=== PATIENT | male | born 1975 | race Two or more races ===

== ENCOUNTER 2025-07-29 09:21 | Emergency (ER) | payer MEDICAID, SELFPAY ==
[2025-07-29 09:54] VITALS: BP 169/123; PULSE 91; RESP 18; TEMP 36.6; O2SAT 96; BMI 29.9
--- NOTE | 2025-07-29 10:01 | PC.NURSE ---
PT NOT IN ROOM; NOR IN ED LOBBY AT THIS TIME
--- NOTE | 2025-07-29 10:12 | PD.EDRME ---
Rapid Medical Screening Exam RME Arrival date/time: 07/29/25 09:21 50-year-old male with no known medical history presents to the emergency room with a chief complaint of a nosebleed to his left nostril x 3 hours I have greeted and performed a focused initial assessment of this patient. A comprehensive ED assessment and evaluation of the patient, analysis of all test results, and completion of the medical decision making process will be conducted by additional ED providers. Chief Complaint: Epistaxis/Nasal Foreign Body Time Seen by Provider: 07/29/25 09:44 Vital signs: Vital Signs Temperature 97.8 F 07/29/25 09:54 Pulse Rate 91 07/29/25 09:54 Respiratory Rate 18 07/29/25 09:54 Blood Pressure 169/123 H 07/29/25 09:54 Pulse Oximetry (%) 96 07/29/25 09:54 Oxygen Delivery Method Room Air 07/29/25 09:54 Vital signs reviewed by provider: Yes Exam: Left nostril epistaxis x 3 hours GCS of 15 alert and oriented x 3 Clinical Impression: anterior epistaxis/posterior epistaxis
--- NOTE | 2025-07-29 10:16 | PC.NURSE ---
PT NOT IN ASSIGNED ROOM NOR IN THE LOBBY AT THIS TIME
--- NOTE | 2025-07-29 10:55 | PC.NURSE ---
PT NOT IN ASSIGNED ROOM NOR IN THE ED LOBBY AT THIS TIME
== END 2025-07-29 10:57 | disposition left against medical advice (07) ==
LOC: SERX 11:00
PROVIDERS: Emergency Provider Emergency Medicine
DX: R04.0 Epistaxis (principal); Z53.29 Procedure and treatment not carried out because of patient's decision for other reasons
CPT/HCPCS: 99281; A9270

== ENCOUNTER 2025-07-29 15:06 | Emergency (ER) | payer MEDICAID, SELFPAY ==
[2025-07-29 15:20] VITALS: BP 141/95; PULSE 86; RESP 18; TEMP 36.8; O2SAT 98; BMI 29.9
[2025-07-29] MEDS: OXYMETAZOLINE NAS SPRY 0.05% 15 ML BTL NASAL (15:48)
--- NOTE | 2025-07-29 15:54 | PD.EDRME ---
Rapid Medical Screening Exam RME Arrival date/time: 07/29/25 15:06 50-year-old male with no known medical history presents to the emergency room with a chief complaint of bleeding from his left nostril x 5 hours I have greeted and performed a focused initial assessment of this patient. A comprehensive ED assessment and evaluation of the patient, analysis of all test results, and completion of the medical decision making process will be conducted by additional ED providers. Chief Complaint: Epistaxis/Nasal Foreign Body Time Seen by Provider: 07/29/25 15:31 Vital signs: Vital Signs Temperature 98.3 F 07/29/25 15:20 Pulse Rate 86 07/29/25 15:20 Respiratory Rate 18 07/29/25 15:20 Blood Pressure 141/95 H 07/29/25 15:20 Pulse Oximetry (%) 98 07/29/25 15:20 Oxygen Delivery Method Room Air 07/29/25 15:20 Vital signs reviewed by provider: Yes Exam: Left nasal epistaxis GCS of 15 Clinical Impression: Anterior epistaxis/posterior epistaxis
--- NOTE | 2025-07-29 17:06 | EDNOTE_ITS ---
<Statement entered by Tatum Abbott MD - 07/31/25 16:17> I, Tatum Abbott MD, have reviewed the history, exam, and assessment of the patient. I have evaluated the patient independently and agree with the plan of care documented by [ ]. All diagnostic studies were reviewed and discussed. I confirm the diagnosis as documented by the Resident. I was present during the Medical Decision Making for this patient. The patient's plan of care was created between myself and the Resident and consistent with our discussion of the patient's case. ED Epistaxis E/[facility] General Chief complaint: Epistaxis/Nasal Foreign Body Stated complaint: NOSE BLEED THAT WILL NOT STOP Time Seen by Provider: 07/29/25 15:31 Arrival date/time: 07/29/25 15:06 E / [facility] Narrative: 07/29/25 15:06 cc: left nose bleed Patient is a 50 year old male with a past medical history of hypertension and polysubstance use disorder who presented to the emergency room via private car with a chief complain of nose bleed that came suddenly within the last 5 hours. Denied any trauma. Denied URI or congestion. Denied any sick contacts. Upon arrival to [facility], patient's nose bledding had stopped. Exam: Left nasal epistaxis GCS of 15 Impression: Anterior epistaxis/posterior epistaxis Related Data Previous Rx's ?Medication ?Instructions ?Recorded cyclobenzaprine 10 mg tablet 10 mg PO TID PRN muscle s pasm #20 02/18/23 tabs ibuprofen 800 mg tablet 800 mg PO TID PRN pain #30 t abs 02/18/23 acetaminophen 500 mg capsule 1,000 mg (2 x 500 mg) PO Q6H PRN 07/19/24 fever or pain #30 caps lisinopril 20 mg tablet 20 mg PO QDAY HTN 7 days #7 tabs 07/29/25 Allergies Allergy/AdvReac Type Severity Reaction Status Date / Time No Known Allergies Allergy Verified 07/29/25 15:08 Review of Systems Review of Systems Narrative Review of Systems: General appearance: NO weight change, NO fatigue, NO weakness, NO fever, NO chills, NO night sweats, No cough Skin: NO rash, NO itching, NO sores, NO moles HEENT: NO Trauma, NO nausea, NO vomiting, NO visual changes, NO blurry vision, NO double vision, NO tinnitus, NO vertigo, NO ear discharge, NO rhinorrhea, NO stuffiness, NO sneezing, NO allergy, NO epistaxis. NO Hoarseness, NO sore throat, NO swollen neck. Cardiac: NO Palpitations, NO dyspnea on exertion, NO orthopnea, NO paroxysmal nocturnal dyspnea, NO edema Respiratory: NO Shortness of Breath, NO Wheezing, NO Cough, NO Sputum, NO hemoptysis GI:NO appetite, NO nausea, NO vomiting, NO dysphagia, NO changes in bowel frequency, NO stool color, NO diarrhea, NO constipation, NO hemetemesis, NO hemorrhoids, NO melena, NO hematechezia, NO abdominal pain, NO jaundice Renal: NO frequency, NO hesitancy, NO urgency, NO hematuria, NO nocturia, NO incontinence MSK: NO muscle weakness, NO gout, NO arthritis, NO muscle stiffness Neuro: NO headaches, NO tremors, NO weakness, NO paralysis, NO seizures, NO loss of consciousness, NO numbness. Hem: NO anemia, NO easy bruising/bleeding, NO petechiae, NO purpura Endo: NO heat/cold intolerance, NO excessive sweating, NO polyuria, NO polydipsia, NO polyphagia, NO thyroid problems, NO diabetes Pysch: NO mood, NO anxiety, NO depression ED Exam Narrative Physical exam: General Appearance: Alert & Oriented X3, well-nourished male who is lying in bed in no acute distress. NO active bleeding at nasal septal region. HEENT: Skull symmetrical and atraumatic. Conjunctivae pink and moist. Pupils equal, round, reactive to light and accommodation (PERRL). External ear without lesion or discharge. Straight, nares patient, mucosa pink, no discharge. Cardio: Normal Rate and Rhythm with S1 and S2 heart sounds. No murmurs or extra heart sounds auscultated. No bruits on carotid auscultation. No peripheral edema or cyanosis. Lungs: Symmetric with good expansion. Chest and back non-tender. Breath sounds vesicular without crackles, wheezing or rhonchi Abdomen: Non-tender, Non-distended, Normal Reactive Bowel Sounds Neuro: Alert, cooperative, oriented to person, place, and time. Speech clear. CN grossly intact. Upper motor strength 5/5 and Lower motor strength 5/5. Sensation intact. Course Quality Measures none Orders Category Date Time Status CBC Stat Lab 07/29/25 16:50 Ordered CMP [Comprehensive Metabolic Panel] Stat Lab 07/29/25 16:50 Ordered PT [Prothrombin Time with INR] Stat Lab 07/29/25 16:50 Ordered PTT [Partial Thromboplastin Time] Stat Lab 07/29/25 16:50 Ordered Oxymetazoline [place] 0.05% [Afrin Nasal [place]] Med 07/29/25 15:32 Discontinued See Dose Instructions NASAL X1 ONE Vital Signs Vital signs: Vital Signs Temperature 98.3 F 07/29/25 15:20 Pulse Rate 86 07/29/25 15:20 Respiratory Rate 18 07/29/25 15:20 Blood Pressure 141/95 H 07/29/25 15:20 Pulse Oximetry (%) 98 07/29/25 15:20 Oxygen Delivery Method Room Air 07/29/25 15:20 Epistaxis Patient data External records reviewed:: [facility] previous records Clinical information provided by:: patient Social determinants that could affect healthcare access:: none Patient has the following chronic illnesses:: HTN and substance use disorder How is presenting disease/condition affected by chronic disease/condition?: uneffected by (unaffected by HTN ) Evaluation data The following diagnostics were reviewed and interpreted by me:: other (specify) Lab and/or radiology exams considered but not ordered:: Refused labs Interpretation Summary: no labs, per patient refused. Medications / Prescriptions Medications or Prescriptions considered but not ordered:: none Medication administrations:: Medication Administration History Discontinued Medications Oxymetazoline HCl (Oxymetazoline [place] 0.05% 15 Ml Btl) 0 spray NASAL X1 ONE Stop: 07/29/25 15:33 Last Admin: 07/29/25 15:48 Dose: 1 spray Documented By: GERARDO Comments: USED BY PROVIDER same as above Consultations Consultation(s) initiated? (list below): No Diagnosis Epistaxis Differential Diagnosis: nasal bone fracture, anterior epistaxis and posterior epistaxis Most likely diagnosis given after review of the tests above:: Likely Anterior epistaxis Admission Indicated Admission indicated?: not indicated Admission Request Was there a request for admission?: No Disposition Plan Disposition Plan: Discharge Discharge Attestation Discharge Attestation: The patient and all family members were given an opportunity to ask questions and understood the discharge instructions. Discharge instructions specifically effects, indications for sooner follow up or return to the emergency department, and the expected course of current diagnosis. Patient condition: Stable Discharge Plan Plan Patient Disposition: HOME (Self Care) Patient condition on transfer: Stable Health Concerns: Instructions: -You experienced a nose bleed which resolved prior to seeing a physician in the emergency room. -Lisinopril refilled for seven days until you follow up with your primary care provider -Please follow up with your primary care provider within one week of discharge -If your symptoms worsen,please seek immediate medical attention and return to your nearest emergency room -If you do not have a primary care provider, you may follow up at the [facility] [address] at [address] [place] [address] [address], [place] [address], Prescriptions/Referrals Prescriptions/Med Rec: New lisinopril 20 mg tablet 20 mg PO QDAY 7 Days Qty: 7 0RF Continued ibuprofen 800 mg tablet 800 mg PO TID PRN (Reason: pain) Qty: 30 0RF cyclobenzaprine 10 mg tablet 10 mg PO TID PRN (Reason: muscle spasm) Qty: 20 0RF acetaminophen 500 mg capsule 1,000 mg PO Q6H PRN (Reason: fever or pain) Qty: 30 0RF Discontinued ibuprofen 600 mg tablet 600 mg PO Q8H PRN (Reason: fever or pain) Qty: 30 0RF lisinopril 20 mg tablet 20 mg PO QDAY Qty: 30 0RF lisinopril 20 mg tablet 20 mg PO QDAY Qty: 30 0RF Referrals: No Primary/Family,Physician [Primary Care Provider] - In 1 week Problem List Clinical Impression: Epistaxis Patient/Caregiver Discharge Instructions Print Language: Portuguese Stand Alone Forms: [facility]a Award Info., Patient Portal Info Letter
== END 2025-07-29 18:45 | disposition home or self-care (01) ==
PROVIDERS: Emergency Provider Emergency Medicine
DX: R04.0 Epistaxis (principal)
CPT/HCPCS: 80053; 85025; 85610; 85730; 99281; A9270

== ENCOUNTER 2025-09-05 17:00 | Emergency (ER) | payer MEDICAID, SELFPAY ==
[2025-09-05 17:07] VITALS: BP 156/106; PULSE 83; RESP 18; TEMP 36.7; O2SAT 99; BMI 31.2
--- NOTE | 2025-09-05 17:07 | EDNOTE_ITS ---
ED Medical Clearance RME/HPI General Chief complaint: Medical Clearance Stated complaint: MEDICAL CLEARANCE Time Seen by Provider: 09/05/25 17:04 Arrival date/time: 09/05/25 17:00 Limitations: no limitations RME / HPI RME / HPI Narrative: 50 year old male with history of hypertension presents to the ED BIB [facility] for medical clearance for incarceration today. Per officer, while at the snf intake the blood pressure was 192/118, 178/111, and 180/112. Reportedly patient had complained of headache and dizziness and advised to be brought here for further evaluation. In the ED, patient reports he last took his medication 2 days ago. No associated symptoms or complaints reported. Related Information Previous Rx's ?Medication ?Instructions ?Recorded cyclobenzaprine 10 mg tablet 10 mg PO TID PRN muscle s pasm #20 02/18/23 tabs ibuprofen 800 mg tablet 800 mg PO TID PRN pain #30 t abs 02/18/23 acetaminophen 500 mg capsule 1,000 mg (2 x 500 mg) PO Q6H PRN 07/19/24 fever or pain #30 caps hydrochlorothiazide 12.5 mg capsule 12.5 mg PO QAM #10 caps 09/05/25 lisinopril 20 mg tablet 20 mg PO QDAY #10 tabs 09/05 Allergies Allergy/AdvReac Type Severity Reaction Status Date / Time No Known Allergies Allergy Verified 09/05/25 17:14 Review of Systems Review of Systems Systems Reviewed: All systems reviewed, normal except as documented Past Medical History Past Medical History CARDIAC: Positive Hypertension Social History SMOKING STATUS: Current every day smoker ED Exam General Limitations: Present no limitations General appearance: Present alert and in no apparent distress Head Head exam: Present atraumatic, normocephalic and normal inspection Eye Eye exam: Present normal appearance, PERRL and EOMI ENT ENT exam: Present normal exam, normal oropharynx and mucous membranes moist Neck Neck exam: Present normal inspection, full ROM and trachea midline Chest Chest inspection: Present normal inspection and symmetric chest wall rise Respiratory Respiratory exam: Present normal lung sounds bilaterally Cardiovascular Cardiovascular exam: Present regular rate, normal rhythm and normal heart sounds Abdominal Exam Abdominal exam: Present soft and normal bowel sounds Extremities Exam Extremities exam: Present normal inspection and full ROM Back Exam Back exam: Present normal inspection and full ROM Neurological Exam Neurological exam: Present alert, oriented X3 and CN II-XII intact Psychiatric Psychiatric exam: Present normal affect and normal mood Skin Skin exam: Present warm, dry, intact and normal color Course Quality Measures none Orders Category Date Time Status Lisinopril [Prinivil] Med 09/05/25 17:09 Discontinued 20 mg PO X1 ONE hydroCHLOROthiazide Med 09/05/25 17:09 Discontinued 25 mg PO X1 ONE Vital Signs Vital signs: Vital Signs Temperature 98.0 F 09/05/25 17:07 Pulse Rate 83 09/05/25 17:07 Respiratory Rate 18 09/05/25 17:07 Blood Pressure 156/106 H 09/05/25 17:07 Pulse Oximetry (%) 99 09/05/25 17:07 Oxygen Delivery Method Room Air 09/05/25 17:07 Medical Clearance MDM Narrative MDM Narrative:: Gisela Padilla am scribing for and in the presence of Dr. Frost. Patient data External records reviewed:: [facility] previous records Clinical information provided by:: patient and law enforcement Social determinants that could affect healthcare access:: substance use (meth (last used 3 months ago), alcohol ( rarely ) ) Patient has the following chronic illnesses:: HTN with medication noncompliance How is presenting disease/condition affected by chronic disease/condition?: exacerbated by Evaluation data The following diagnostics were reviewed and interpreted by me:: other (specify) (No diagnostics ordered ) Lab and/or radiology exams considered but not ordered:: None Interpretation Summary: No diagnostics ordered Medications / Prescriptions Medications or Prescriptions considered but not ordered:: None Medication administrations:: Medication Administration History Discontinued Medications Hydrochlorothiazide (Hydrochlorothiazide 12.5 Mg Capsule) 25 mg PO X1 ONE Stop: 09/05/25 17:10 Last Admin: 09/05/25 17:20 Dose: 25 mg Documented By: DO Lisinopril (Lisinopril 20 Mg Tablet) 20 mg PO X1 ONE Stop: 09/05/25 17:10 Last Admin: 09/05/25 17:20 Dose: 20 mg Documented By: DO See above Consultations Consultation(s) initiated? (list below): No Diagnosis Medical Clearance Differential Diagnosis: other (medical clearance for incarceration, hypertension, hypertensive emergency, hypertension urgency ) Most likely diagnosis given after review of the tests above:: Hypertension Admission Indicated Admission indicated?: not indicated Explain why admission is indicated or not indicated:: With no condition needing emergent intervention, there was no indication for admission. Admission Request Was there a request for admission?: No Disposition Plan Disposition Plan: Discharge Discharge Attestation Discharge Attestation: The patient and all family members were given an opportunity to ask questions and understood the discharge instructions. Discharge instructions specifically effects, indications for sooner follow up or return to the emergency department, and the expected course of current diagnosis. Patient condition: Stable Discharge Plan Plan Patient Disposition: Shelter/Court/Law Patient condition on transfer: Stable Prescriptions/Referrals Prescriptions/Med Rec: New lisinopril 20 mg tablet 20 mg PO QDAY Qty: 10 0RF hydrochlorothiazide 12.5 mg capsule 12.5 mg PO QAM Qty: 10 0RF No Action ibuprofen 800 mg tablet 800 mg PO TID PRN (Reason: pain) Qty: 30 0RF cyclobenzaprine 10 mg tablet 10 mg PO TID PRN (Reason: muscle spasm) Qty: 20 0RF acetaminophen 500 mg capsule 1,000 mg PO Q6H PRN (Reason: fever or pain) Qty: 30 0RF Problem List Clinical Impression: Hypertension Patient/Caregiver Discharge Instructions Discharge Activity: activity as tolerated Education Materials: ED High Blood Pressure ... Additional Instructions: Please take your medications on a daily basis. Follow-up with your regular doctor next week. Print Language: Lao
[2025-09-05 17:20] VITALS: BP 156/106; PULSE 83
== END 2025-09-05 17:36 ==
LOC: SERX 17:21
PROVIDERS: Emergency Provider Family Medicine; PCP Family Medicine
DX: Z02.89 Encounter for other administrative examinations (principal); I10 Essential (primary) hypertension; F17.200 Nicotine dependence, unspecified, uncomplicated
CPT/HCPCS: 99281; A9270